=== PATIENT | male | born 1970 | race Caucasian/White ===

== ENCOUNTER → 2021-07-10 12:53 | Outpatient (CLI) | payer BC, SELFPAY ==
--- NOTE | ~2021-07-10 | CT_ITS ---
EXAMINATION: CT abdomen pelvis wo/w con DATE: 07/10/2021 13:58 INDICATION: Microscopic hematuria. TECHNIQUE: Computed tomography (CT) of the abdomen and pelvis was performed without and with intraven ous contrast using a total of 130 mL Omnipaque-350 intravenous contrast with a double-bolus technique for simultaneous opacification of the renal parenchyma and renal collecting system. Automated exposu re control and iterative reconstruction technique were employed. The dose-length product was 2130.09 mGy-cm. COMPARISON: CT abdomen and pelvis 10/23/2011 FINDINGS: The visualized portions of the lung bases demonstrate mild atelectasis. There are two 4 mm nodules in left lower lobe, likely benign. The heart size is normal. No pericardial effusion. There is diffuse hepatic steatosis. The gallbladder, spleen, pancreas, and adrenal glands are normal. There is a 1 mm stone in right kidney. Left kidney is normal. The ureters are not well opacified distally, but are no rmal. The bladder is normal. The prostate is mildly enlarged. There are bilateral inguinal hernias co ntaining fat. There are no dilated loops of bowel. There are no pathologically enlarged lymph nodes. There is no free intraperitoneal fluid. There is moderate lumbar spondylosis and mild thoracic spondy losis. IMPRESSION: 1. 1 mm nonobstructing right kidney stone. 2. Diffuse hepatic steatosis. 3. Bilateral inguinal hernias containing fat. Reviewed, dictated and finalized at location A. [employer]PER[employer]
[2021-07-10 13:25] LABS: Estimated Glomerular Filt Rate > 60
== END ==
PROVIDERS: Visit Provider Urology
DX: R31.29 Other microscopic hematuria (principal)
CPT/HCPCS: 74178; Q9967

== ENCOUNTER 2021-07-24 10:34 | Emergency (ER) | payer BC, SELFPAY ==
[2021-07-24 10:41] VITALS: BP 161/84; PULSE 75; RESP 12; TEMP 36.7; O2SAT 99
--- NOTE | 2021-07-24 10:45 | ED.URI ---
HPI - URI/Sore Throat General Chief Complaint: Upper Respiratory Infection Stated Complaint: RUNNY NOSE/CONGESTION/COUGH/FATIGUE Time Seen by Provider: 07/24/21 10:46 Source: patient and RN notes reviewed History of Present Illness HPI Narrative: Patient is a 51-year-old male who presents the urgent care with complaints of cough, runny nose, congestion and fatigue. Patient states it started on Friday and he recently was traveling from [place]. Patient denies of any fever. States that he does have a beginning stages of COPD and does have an inhaler that he has been using for symptom relief. Patient has also been using Mucinex. Denies of any other illness in the home. Denies of any known exposures. Patient is vaccinated for Covid. No other acute complaints. No acute distress noted. Patient aware of the plan of care. Some parts of this dictation were generated by voice recognition software and may contain typographical and/or grammatical inaccuracies. Related Data Home Medications Medication Instructions Recorded Confirmed albuterol sulfate INHALATION 07/24/21 budesonide-formoterol [Symbicort] INHALATION 07/24/21 hydrochlorothiazide 07/24/21 metoprolol tartrate 07/24/21 omeprazole 07/24/21 sertraline mg 07/24/21 valacyclovir 07/24/21 Allergies Allergy/AdvReac Type Severity Reaction Status Date / Time acetaminophen Allergy Verified 10/23/11 08:06 HYDROCODONE BIT Allergy Uncoded 10/23/11 08:06 Review of Systems Review of Systems: CONSTITUTIONAL: Denies fever, chills, or sweats. Reports of fatigue EYES: Denies visual changes, redness, or discharge. ENT: Reports of rhinorrhea, sinus congestion, postnasal drainage CARDIOVASCULAR: Denies chest pain, palpitations, or edema. RESPIRATORY: Reports a nonproductive cough with intermittent dyspnea GASTROINTESTINAL: Denies abdominal pain, nausea, vomiting, or diarrhea. GENITOURINARY: Denies dysuria or hematuria. SKIN: Denies rash or itching. MUSCULOSKELETAL: Denies back pain, joint pain, or myalgia. NEUROLOGIC: Denies headache, numbness, or weakness. All other systems reviewed are negative, except as documented in HPI. PMFSH Comments At the time of my signature, I reviewed and agree with the nursing past medical, surgical, social, and family history. There is no relevant family history pertinent to the patient complaint. Exam Narrative: GENERAL: This is a well-nourished, well-developed patient, in no apparent distress. HEAD: normocephalic, atraumatic. EYES: PERRL. Sclera clear/white. Vision is grossly intact. EARS: External ears normal, auditory canals clear and without drainage, TMs normal without perforation. Hearing grossly intact. NOSE: External nose normal with no obvious nasal discharge. Bilateral erythemic nares with clear to yellow rhinorrhea THROAT: Mucous membranes moist. Moderate erythema noted posterior oropharynx with moderate postnasal drainage NECK: Neck supple CARDIOVASCULAR: Regular rate and rhythm without murmurs, gallops, or rubs. RESPIRATORY: Slight crackles throughout. Breath sounds equal bilaterally. SKIN: warm, intact with no suspicious lesions or rash, good texture and turgor. NEURO: awake, alert, and oriented to person, place and time. There were no obvious focal neurologic abnormalities. EXTREMITIES: No clubbing, cyanosis, or edema. Course Vital Signs Vital signs: Vital Signs Temperature 98.0 F 07/24/21 10:41 Pulse Rate 75 07/24/21 10:41 Respiratory Rate 12 07/24/21 10:41 Blood Pressure 161/84 H 07/24/21 10:41 Pulse Oximetry 99 07/24/21 10:41 Temperature 98.0 F 07/24/21 10:41 Pulse Rate 75 07/24/21 10:41 Respiratory Rate 12 07/24/21 10:41 Blood Pressure 161/84 H 07/24/21 10:41 Pulse Oximetry 99 07/24/21 10:41 Reviewed-patient is informed that they may have pre-hypertension or hypertension based on a blood pressure reading in the department. I recommend the patient call the primary care provid
== END 2021-07-24 11:20 | disposition home or self-care (01) ==
PROVIDERS: Emergency Provider Nurse Practitioner Family
DX: J40 Bronchitis, not specified as acute or chronic (principal); Z20.822 Contact with and (suspected) exposure to COVID-19; I10 Essential (primary) hypertension
CPT/HCPCS: 87426; 87804; 99203; C9803; G0463

== ENCOUNTER 2022-08-26 16:56 | Emergency (ER) | payer BC, SELFPAY | END 2022-08-26 17:07 | disposition left against medical advice (07) | LOC: ANHED 18:04 | DX: Z53.21 Procedure and treatment not carried out due to patient leaving prior to being seen by health care provider (principal) | CPT/HCPCS: 99199 ==

== ENCOUNTER 2022-11-19 06:07 | Emergency (ER) | payer BC, SELFPAY ==
--- NOTE | ~2022-11-19 | XR_ITS ---
Clinical Indication: Chest pain PA and lateral views of the chest: Comparison: None Findings: The lungs are clear, without evidence of focal consolidation or pleural effusion. Cardiome diastinal silhouette is within normal limits. Bones and soft tissues are unremarkable. Impression: Normal chest. Reviewed, dictated and finalized at location . Impression: Normal chest.
--- NOTE | ~2022-11-19 | CT_ITS ---
Clinical Indication: Chest pain CT Scan of the Chest with Contrast: Technique: Contiguous sections were acquired throughout the chest after intravenous administration of 100 cc of Omnipaque 350. Dose reduction technique was used on this scan by utilizing automated expos ure control and iterative reconstruction technique. The dose-length product (DLP) was 844.68 mGy-cm. Findings: There is no evidence of any significant mediastinal, hilar or axillary lymphadenopathy. There is no f illing defect in the pulmonary arterial tree to suggest pulmonary embolus. There is no evidence of ao rtic dissection or aneurysm. There is no evidence of pleural or pericardial effusion. 3 mm nodule noted in the right middle lobe (axial image 74). 3 mm left upper lobe nodule noted (axial image 47). There is groundglass opacity in the left lower lobe adjacent to an apparent pseudarthrosi s bruising the left sixth and seventh ribs (axial images 57-64). Images through the upper abdomen reveal diffuse fatty infiltration of liver. Impression: No evidence of pulmonary embolus, aortic dissection, or aortic aneurysm. Subcentimeter pulmonary nodules, as noted above. According to Fleischner Society criteria, for a low- risk patient, no further follow-up required. For a high-risk patient, consider 12 month follow-up CT. Groundglass opacity in the left lower lobe adjacent to an apparent pseudoarthrosis between the left s ixth and seventh ribs. This probably represents local atelectatic change. Consider follow-up exam in 6 months to one year to reassess as indicated. Diffuse fatty infiltration of liver. Reviewed, dictated and finalized at [facility]. Impression: No evidence of pulmonary embolus, aortic dissection, or aortic aneurysm. Subcentimeter pulmonary nodules, as noted above. According to Fleischner Societ y criteria, for a low-risk patient, no further follow-up required. For a high-r isk patient, consider 12 month follow-up CT. Groundglass opacity in the left lower lobe adjacent to an apparent pseudoarthro sis between the left sixth and seventh ribs. This probably represents local ate lectatic change. Consider follow-up exam in 6 months to one year to reassess as indicated. Diffuse fatty infiltration of liver.
[2022-11-19 06:13] VITALS: BP 161/99; PULSE 82; RESP 19; O2SAT 96
--- NOTE | 2022-11-19 06:20 | ECG_ITS ---
Measurements Intervals [place] Rate: 80 P: 43 DC: 144 QRS: 5 QRSD: 90 T: 67 QT: 359 QTc: 414 Interpretive Statements SINUS RHYTHM BASELINE ARTIFACT NORMAL ECG NO PREVIOUS ECG AVAILABLE FOR COMPARISON Electronically Signed On 11-19-2022 16:15:54 CDT by Yariel Breen M.D.
[2022-11-19 06:26] VITALS: BP 161/99; PULSE 76; PULSE 77; RESP 16; TEMP 36.7; O2SAT 97
--- NOTE | 2022-11-19 06:51 | ED.CHESTPAIN ---
HPI - Chest Pain General Chief Complaint: Chest Pain <Salud Escoto MD - Last Filed: 11/29/22 07:10> Stated Complaint: chest pain <Salud Escoto MD - Last Filed: 11/29/22 07:10> Time Seen by Provider: 11/19/22 06:31 <Salud Escoto MD - Last Filed: 11/29/22 07:10> History of Present Illness HPI narrative: Patient presenting with chest pain, worse when he takes deep breaths, yesterday had been having bad nausea, vomiting, diarrhea, started taking Zofran and now is feeling better. Today feeling some chest pressure to his left chest. <Salud Escoto MD - Last Filed: 11/29/22 07:10> Related Data Home Medications: Home Medications Medication Instructions Recorded Confirmed albuterol sulfate 90 mcg/actuation inhalation 07/24/21 aerosol inhaler budesonide-formoterol HFA 160 inhalation 07/24/21 mcg-4.5 mcg/actuation aerosol inhaler (Symbicort) hydrochlorothiazide 12.5 mg capsule 07/24/21 metoprolol tartrate 50 mg tablet 07/24/21 omeprazole 40 mg capsule,delayed 07/24/21 release sertraline 100 mg tablet mg 07/24/21 valacyclovir 1 gram tablet 07/24/21 <Salud Escoto MD - Last Filed: 11/29/22 07:10> Allergies/Adverse Reactions: Allergies Allergy/AdvReac Type Severity Reaction Status Date / Time hydrocodone Allergy Unknown Hives Verified 11/19/22 08:15 <Salud Escoto MD - Last Filed: 11/29/22 07:10> Review of Systems Review of Systems: CONST: No fever. HEENT: No sore throat C/V: chest pain RESP: Difficulty with deep GI: Reports nausea, vomiting[, diarrhea] yesterday now resolved : No dysuria. M/S: No joint pain. SKIN: No rash. NEURO: [No headache or focal numbness or weakness] PSYCH: [No depression] <Salud Escoto MD - Last Filed: 11/29/22 07:10> [facility] Past Medical History Medical History: Medical History (Updated 11/20/22 @ 00:00 by Background Daramy) Hypertension <Salud Escoto MD - Last Filed: 11/29/22 07:10> Exam Narrative: EXAMINATION OF ORGAN SYSTEMS/BODY AREAS: Constitutional: Vital signs per nursing GENERAL: Appears somewhat anxious HEAD: Normal with no signs of head trauma. EYES: EOMI, conjunctiva normal ENT: Hearing grossly intact LUNGS: Nonlabored breathing, CTAB, but complains of pain with deep breaths HEART: [Regular rate and rhythm] ABD: [Soft], [nontender to palpation] EXT: Normal range of motion SKIN: [No rashes or lesions.] NEURO: [Alert and oriented x 3. No gross focal sensory or strength deficits.] PSYCH: slightly anxious affect <Salud Escoto MD - Last Filed: 11/29/22 07:10> Course Course Emergency Course: Care turned myself at shift change. Patient seen evaluate myself. Notes left-sided chest pain that began this morning. The pain is worse with deep inspiration and movement of the torso. If he does not move and states that without breathing he has no pain. States he did have episodes of nausea and vomiting yesterday Patient was given Toradol and GI cocktail in ED with improvement of pain Discussed with patient results of workup and diagnosis. Discussed need for follow-up with primary care, proper use of medication, and reasons to return to the emergency department. Patient understands and agrees to current treatment plan <Abraham Singh DO - Last Filed: 11/19/22 11:41> Vital Signs Vital signs: Vital Signs Pulse Rate 82 11/19/22 06:13 Respiratory Rate 19 11/19/22 06:13 Blood Pressure 161/99 H 11/19/22 06:13 Pulse Oximetry 96 11/19/22 06:13 Temperature 98.1 F 11/19/22 06:26 Pulse Rate 63 11/19/22 11:46 Respiratory Rate 16 11/19/22 11:46 Blood Pressure 151/92 H 11/19/22 11:46 Pulse Oximetry 96 11/19/22 11:46 Oxygen Delivery Room Air 11/19/22 06:26 <Salud Escoto MD - Last Filed: 11/29/22 07:10> Vital Signs Pulse Rate 82 11/19/22 06:13 Respiratory Rate 19 11/19/22 06:13 Blood Pressure 161/99 H 11/19/22 06:13 Pulse Oximetry 96 11/19/22
[2022-11-19 07:06] LABS: Basophils Percent Auto 0.1 % (0.2-1.2); Eosinophils Absolute Auto 0.1 K/mm3 (0-0.3); Eosinophils Percent Auto 0.7 % (0-4.4); Hematocrit 44.1 % (42.0-52.0); Hemoglobin 15.7 g/dL (14.0-18.0); Immature Granulocyte Absolute 0.03 K/mm3 (0.00-0.031); Immature Granulocyte Percent A 0.4 % (0-0.5); Lymphocytes Absolute Auto 0.77 K/mm3 (0.9-3.2); Lymphocytes Percent Auto 9.4 % (18.3-44.2); Mean Corpuscular HGB Conc 35.6 g/dl (32-36); Mean Corpuscular Hemoglobin 31.2 pg (26-34); Mean Corpuscular Volume 87.7 fl (80-100); Monocytes Absolute Auto 0.4 K/mm3 (0.1-0.6); Monocytes Percent Auto 4.7 % (2.6-8.5); Neutrophils Percent Auto 84.7 % (45.5-73.1); Platelet Count Result 223 k/mm3 (150-375); Red Blood Count 5.03 M/mm3 (4.6-6.20); Red Cell Distribution Width 13.7 % (11.5-14.5); White Blood Count 8.2 K/mm3 (4.5-10.0)
[2022-11-19 07:18] LABS: Alanine Aminotransferase 46 U/L (6-50); Albumin Level 4.8 g/dL (3.5-5.1); Alkaline Phosphatase 84 U/L (38-126); Anion Gap 7 mmol/L (8-16); Aspartate Amino Transferase 49 U/L (17-59); Bilirubin,Total 0.8 mg/dL (0.2-1.3); Blood Urea Nitrogen 16 mg/dL (9-20); Calcium 8.9 mg/dL (8.4-10.2); Carbon Dioxide 28 mmol/L (22-30); Chloride 102 mmol/L (98-107); Estimated Glomerular Filt Rate > 60; Glucose 146 mg/dL (65-110); Lipase 51 U/L (23-300); Potassium 3.5 mmol/L (3.4-5.0); Sodium 137 mmol/L (137-145)
[2022-11-19 07:29] LABS: NT Pro B Type Natriuretic Pept < 20 pg/mL (19.9-100); Troponin I < 0.012 ng/mL (0.000-0.034)
[2022-11-19 07:43] LABS: Influenza A QL RT-PCR Negative (Negative); Influenza B QL RT-PCR Negative (Negative); RSV RNA, RT-PCR Negative (Negative); SARS-CoV-2 RNA PCR Negative
[2022-11-19 08:07] LABS: D Dimer 1.04 ug/mL (<0.48)
[2022-11-19] MEDS: KETOROLAC 30 MG/ML VIAL (*BKC) IV PUSH (08:27)
[2022-11-19 09:41] LABS: Troponin I < 0.012 ng/mL (0.000-0.034)
[2022-11-19 11:10] VITALS: BP 148/90; PULSE 67; RESP 16; O2SAT 99
--- NOTE | 2022-11-19 11:12 | PC.NURSE ---
assumed care. pt resting per stretcher in no distress. states he feels a little better after GI cocktail. awaiting eval.
[2022-11-19 11:46] VITALS: BP 151/92; PULSE 63; RESP 16; O2SAT 96
== END 2022-11-19 11:48 | disposition home or self-care (01) ==
PROVIDERS: Emergency Medicine; Emergency Provider Emergency Medicine
DX: R07.89 Other chest pain (principal); Z20.822 Contact with and (suspected) exposure to COVID-19; I10 Essential (primary) hypertension; K76.0 Fatty (change of) liver, not elsewhere classified
CPT/HCPCS: 36415; 71046; 71275; 80053; 83690; 83880; 84484; 85025; 85380; 87637; 93005; 96374; 99284; A9270; J1885; Q9967

== ENCOUNTER 2022-12-05 05:53 | Emergency (ER) | payer BC, SELFPAY ==
[2022-12-05] VITALS (9 sets, daily range): BP systolic 153–172; BP diastolic 73–100; PULSE 57–80; RESP 15–18; TEMP 36.7; O2SAT 95–99
--- NOTE | ~2022-12-05 | XR_ITS ---
Lumbosacral Spine: AP, oblique, and lateral views Clinical History: Pain Findings: The normal lordotic curve is maintained. Minimal anterior wedging deformities of T12 and L1 are noted. 5 mm anterolisthesis of L4 over L5 noted. There is mild facet arthropathy at the lower ankit mbar spine. The intervertebral disc spaces are preserved. The sacroiliac joints are normally outline d. Impression: Minimal anterior wedging deformities of T12 and L1, probably similar to prior CT dated 07/10/2021. 5 mm anterolisthesis of L4 over L5. Mild facet arthropathy at the lower lumbar spine. Reviewed, dictated and finalized at location M. Impression: Minimal anterior wedging deformities of T12 and L1, probably similar to prior C T dated 07/10/2021. 5 mm anterolisthesis of L4 over L5. Mild facet arthropathy at the lower lumbar spine.
--- NOTE | 2022-12-05 07:19 | ED.BACK ---
HPI - Back Pain/Injury General Chief Complaint: Back Pain/Injury Stated Complaint: back pain Time Seen by Provider: 12/05/22 06:56 History of Present Illness HPI Narrative: 52-year-old male presented emergency department for evaluation of left lower back pain. Patient states he does have a history of degenerative disc disease. Patient reports a few days ago he was walking into the garage, had no falls or injuries but then stated he began having some left lower back pain. Patient states he does sit most of the day. Patient has been taking ibuprofen for pain control with minimal improvement. Patient denies any numbness or weakness in the lower extremities and denies any change in bowel or bladder habits. Patient reports he did take some Flexeril the night before and when he woke up yesterday morning the pain was temporarily improved. Patient states after sitting for period of time he began having worsening pain again. Patient denies any falls or injuries. Patient denies any history of kidney stones and denies any hematuria. Related Data Home Medications Medication Instructions Recorded Confirmed albuterol sulfate 90 mcg/actuation inhalation 07/24/21 aerosol inhaler budesonide-formoterol HFA 160 inhalation 07/24/21 mcg-4.5 mcg/actuation aerosol inhaler (Symbicort) hydrochlorothiazide 12.5 mg capsule 07/24/21 metoprolol tartrate 50 mg tablet 07/24/21 omeprazole 40 mg capsule,delayed 07/24/21 release sertraline 100 mg tablet mg 07/24/21 valacyclovir 1 gram tablet 07/24/21 Allergies Allergy/AdvReac Type Severity Reaction Status Date / Time No Known Allergies Allergy Verified 12/05/22 07:45 Review of Systems Review of Systems: All systems reviewed & are unremarkable except as noted in HPI and below PMFSH Past Medical History Medical History (Updated 12/05/22 @ 09:32 by Jerry Mercado MD) Hypertension Exam Narrative: APPEARANCE: Well appearing, no pain, no distress, well-nourished. HEAD: normocephalic, atraumatic. EYES: PERRLA/EOMI, conjunctivae clear. NECK: Supple. No adenopathy, no masses. RESPIRATORY: Airway patent, respirations nonlabored. Clear to auscultation bilaterally, no rales, rhonchi, wheezing. CARDIOVASCULAR: Regular rate and rhythm without murmurs rubs or gallops. ABDOMINAL: Soft, nontender, nondistended, normal bowel sounds MUSCULOSKELETAL: Left lower paraspinal tenderness to palpation NEURO: Alert. Cranial nerves II through XII intact. Grossly intact SKIN: Warm, dry. Normal Color Course Course Emergency Course: 52-year-old male presented the ED for evaluation of back pain. UA was ordered to evaluate for possible kidney stone. No hematuria or infection was identified. X-ray shows no acute fracture or dislocation. Patient reports he did take some muscle relaxant at home and that this did seem to help. Patient will be prescribed Flexeril for muscle spasm. Patient was encouraged of close follow-up with his primary care physician Vital Signs Vital signs: Vital Signs Temperature 98.0 F 12/05/22 05:56 Pulse Rate 80 12/05/22 05:56 Respiratory Rate 18 12/05/22 05:56 Blood Pressure 172/79 H 12/05/22 05:56 Pulse Oximetry 99 12/05/22 05:56 Oxygen Delivery Room Air 12/05/22 05:56 Temperature 98.0 F 12/05/22 05:56 Pulse Rate 57 L 12/05/22 07:04 Respiratory Rate 15 12/05/22 07:04 Blood Pressure 153/91 H 12/05/22 07:46 Pulse Oximetry 97 12/05/22 07:46 Oxygen Delivery Room Air 12/05/22 05:56 MDM - Back Pain/Injury Lab Data Attestation: I reviewed the patient's lab results. Labs: Lab Results 12/05/22 Range/Units 07:57 Urine Color Yellow (Yellow) Urine Appearance Clear (Clear) Urine pH 6.5 (5.0-9.0) Ur Specific [place] 1.028 (1.001-1.035) Urine Protein Negative (Negative) mg/dL Urine Glucose (UA) Negative (Negative) mg/dL Urine Ketones Negative (Negative) mg/dL Ur Blood (Man) Negat
--- NOTE | 2022-12-05 07:49 | PC.NURSE ---
Pt states he gets slight pain relief after urinating
[2022-12-05 08:05] LABS: Appearance Urine Clear (Clear); Bilirubin Urine Negative (Negative); Blood Urine Negative (Negative); Color Urine Yellow (Yellow); Glucose Urine UA Negative (Negative); Ketones Urine Negative (Negative); Leukocyte Esterase Ur Negative LEU/UL (Negative); Nitrate Urine Negative (Negative); Protein Urine Negative (Negative); Specific Grav Ur 1.028 (1.001-1.035); pH Urine 6.5 (5.0-9.0)
[2022-12-05 08:11] LABS: Add Urine Microscopic? NO
== END 2022-12-05 09:49 | disposition home or self-care (01) ==
PROVIDERS: Emergency Provider Emergency Medicine
DX: S39.012A Strain of muscle, fascia and tendon of lower back, initial encounter (principal); I10 Essential (primary) hypertension; X58.XXXA Exposure to other specified factors, initial encounter
CPT/HCPCS: 72110; 81003; 99283

== ENCOUNTER 2023-12-01 09:17 | Outpatient (CLI) | payer BC, SELFPAY ==
--- NOTE | ~2023-12-01 | CT_ITS ---
EXAMINATION: CT lung screening DATE: 12/01/2023 09:32 INDICATION: Personal history of nicotine dependence TECHNIQUE: Computed tomography (CT) of the chest was performed without intravenous contrast. The dose -length product was 222.81 mGy-cm. Automated exposure control and iterative reconstruction technique were employed. COMPARISON: CT dated 11/19/2022 FINDINGS: Heart size normal. No significant pleural or pericardial effusion. No thoracic lymphadenopa thy. No endobronchial lesions. There is a 3 mm left perifacial nodule, image 39. There are small righ t upper lobe nodules measuring 2-3 mm. There is a 3 mm left upper lobe nodule, image 42. There is a 3 mm left lower lobe nodule. No pneumothorax. No endobronchial lesions. IMPRESSION: 1. Lung-RADS category 2: Benign appearance or behavior. Continue annual screening with noncontrast lo w-dose chest CT in 12 months. Reviewed, dictated and finalized at location B. IMPRESSION: 1. Lung-RADS category 2: Benign appearance or behavior. Continue annual screeni ng with noncontrast low-dose chest CT in 12 months.
== END 2023-12-01 09:18 ==
PROVIDERS: PCP Nurse Practitioner Family; Visit Provider Nurse Practitioner Family
DX: Z12.2 Encounter for screening for malignant neoplasm of respiratory organs (principal); Z87.891 Personal history of nicotine dependence
CPT/HCPCS: 71271

== ENCOUNTER 2024-09-15 09:15 | Outpatient (CLI) | payer BC, SELFPAY ==
--- NOTE | 2024-09-15 09:17 | EST_ITS ---
Patient Info Name: Marin Mejia Age: 54 years : 1970 Gender: Male Ht: 66 in Wt: 220 lbs BSA: 2.20 m2 HR: 56 bpm BP: 171 / 85 mmHg Exam Date: 09/15/2024 9:44 AM Exam Location: [facility] Patient Status: Outpatient Admit Date: 09/15/2024 Staff Ordering Physician: Batool Holman NP Attending Provider: Batool Holman NP Exercise Technologist: Lucille Abarca [facility] Exercise Physician: Pavel Tovar DO Exam Type: CA stress test treadmill Study Info A treadmill exercise stress test was performed. Summary 1. 1. Inconclusive Nader exercise stress test for ischemic ST changes by ECG criteria due to achieving only 65% MPHR for age group. This is probably due to taking Metoprolol the night before. 2. 2. Good functional capacity, achieving 10 METs of workload. 3. 3. Appropriate HR response to exercise. 4. 4. Appropriate HR recovery at 1 minute post exercise. 5. 5. No imaging with stress testing. 6. 6. Patient informed of the above results. Protocol: Nader Stress ECG Details Stage: REST Duration (min): 2 min : 13 sec Speed (mph): 0.0 Grade (%): 0 HR (bpm): 55 SBP (mmHg): 171 DBP (mmHg): 85 METS: --- Stage: REST Duration (min): 5 min : 24 sec Speed (mph): 0.0 Grade (%): 0 HR (bpm): 63 SBP (mmHg): 171 DBP (mmHg): 85 METS: --- Stage: STAGE 1 Duration (min): 1 min : 0 sec Speed (mph): 1.7 Grade (%): 10 HR (bpm): 74 SBP (mmHg): 171 DBP (mmHg): 85 METS: --- Stage: STAGE 1 Duration (min): 2 min : 0 sec Speed (mph): 1.7 Grade (%): 10 HR (bpm): 81 SBP (mmHg): 171 DBP (mmHg): 85 METS: --- Stage: STAGE 1 Duration (min): 3 min : 0 sec Speed (mph): 1.7 Grade (%): 10 HR (bpm): 84 SBP (mmHg): 171 DBP (mmHg): 85 METS: --- Stage: STAGE 2 Duration (min): 1 min : 0 sec Speed (mph): 2.5 Grade (%): 12 HR (bpm): 88 SBP (mmHg): 117 DBP (mmHg): 87 METS: --- Stage: STAGE 2 Duration (min): 2 min : 0 sec Speed (mph): 2.5 Grade (%): 12 HR (bpm): 89 SBP (mmHg): 117 DBP (mmHg): 87 METS: --- Stage: STAGE 2 Duration (min): 3 min : 0 sec Speed (mph): 2.5 Grade (%): 12 HR (bpm): 91 SBP (mmHg): 177 DBP (mmHg): 91 METS: --- Stage: STAGE 3 Duration (min): 1 min : 0 sec Speed (mph): 3.4 Grade (%): 14 HR (bpm): 101 SBP (mmHg): 177 DBP (mmHg): 91 METS: --- Stage: STAGE 3 Duration (min): 2 min : 0 sec Speed (mph): 3.4 Grade (%): 14 HR (bpm): 101 SBP (mmHg): 177 DBP (mmHg): 91 METS: --- Stage: STAGE 3 Duration (min): 3 min : 0 sec Speed (mph): 3.4 Grade (%): 14 HR (bpm): 107 SBP (mmHg): 160 DBP (mmHg): 98 METS: --- Stage: RECOVERY Duration (min): 0 min : 59 sec Speed (mph): 0.0 Grade (%): 0 HR (bpm): 83 SBP (mmHg): 160 DBP (mmHg): 98 METS: --- Stage: RECOVERY Duration (min): 1 min : 59 sec Speed (mph): 0.0 Grade (%): 0 HR (bpm): 68 SBP (mmHg): 160 DBP (mmHg): 98 METS: --- Stage: RECOVERY Duration (min): 2 min : 59 sec Speed (mph): 0.0 Grade (%): 0 HR (bpm): 67 SBP (mmHg): 160 DBP (mmHg): 98 METS: --- Stage: RECOVERY Duration (min): 3 min : 8 sec Speed (mph): 0.0 Grade (%): 0 HR (bpm): 69 SBP (mmHg): 203 DBP (mmHg): 94 METS: --- Rest HR: 63 bpm Peak HR: 108 bpm Rest Sys BP: 171 mmHg Peak Sys BP: 203 mmHg Max Pred HR: 165 bpm % Max Pred HR: 65 % Target HR: 140 bpm Max RPP: 21,924 bpm*mmHg [place] Score: 4 Termination Reason: Maximal effort/unable to continue Cardiac Symptoms: Shortness of breath Max ST Seg Deviation: 0.90 mm Total Time: 9 min : 0 sec Rest [place] BP: 85 mmHg Peak [place] BP: 94 mmHg Angina Score: None Total METS: 10.3 Resting ECG Sinus rhythm. Stress ECG No ST changes. Arrhythmias None. Report Signatures
--- OUTSIDE RECORDS SUMMARY | 2024-09-15 09:44 | XMS_ITS | Clinical Summary ---
Author Organization [facility] Address [address] [place] [address] Care Team Providers Care Netsuite Consultant Name Role Phone oH Mercado MD Primary Care Provider [phone] Allergies No known active allergies Medications sertraline 100 MG tablet Take 150 mg by mouth daily. 09/18/2021 Active lisinopril 10 MG tablet Take 10 mg by mouth daily. 09/18/2021 Active metoprolol tartrate 50 MG tablet Take 50 mg by mouth 2 (two) times daily. 09/18/2021 Active omeprazole 40 MG capsule Take 40 mg by mouth daily. 09/18/2021 Active calcium citrate-vitamin D 315 MG-250 UNIT 315-250 MG-UNIT Tab tablet Take by mouth 2 (two) times daily as needed. Active Saw [place] 450 MG Cap Active B complex-C Cap capsule Take 1 capsule by mouth daily. Active omeprazole (PRILOSEC) 20 MG capsule TAKE 1 CAPSULE BY MOUTH ONCE DAILY DIRECTED FOR 30 DAYS 05/27/2022 Active ibuprofen (MOTRIN) 200 MG tablet Take 200 mg by mouth every 6 (six) hours as needed for Pain. Active Active Problems Problem Noted Date Diagnosed Date Precordial pain 10/01/2021 Essential hypertension Family History Medical History Relation Comments Alcohol Abuse Father COPD Father Heart Attack Maternal Grandfather Cancer Mother Early Mother Heart Attack Paternal Grandfather Relation Status Comments Brother Alive Father Alive Maternal Grandfather (Age 57) Mother (Age 56) Paternal Grandfather (Age 72) Sister Alive Social History Tobacco Use Types Packs/Day Years Used Date Smoking Tobacco: Former Cigarettes Q uit: 08/11/2018 Smokeless Tobacco: Never Tobacco Cessation:Counseling Given: No Comments:vapes RD to discuss Alcohol Use Standard Drinks/Week Comments Not Currently 0 (1 standard drink = 0.6 oz pur e alcohol) PHQ-2 Answer Date Recorded PHQ-2 Score - If the patient scores above 3, please move on to questions 3-9 0 05/31/2022 Sex and Gender Information Value Date Recorded Sex Assigned at Not on file Legal Sex Male 7:16 PM CDT Gender Identity Male 09/28/2021 3:36 PM [employer] Sexual Orientation Not on file 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 Not on file Not on file Not on file Last Filed Vital Signs Vital Sign Reading Time Taken Comments Blood Pressure 135/80 07/12/2022 7:26 AM [employer] Pulse 64 07/12/2022 7:26 AM [employer] Temperature - - Respiratory Rate - - Oxygen Saturation - - Inhaled Oxygen Concentration - - Weight 96.6 kg (213 lb) 07/12/2022 7:26 AM [employer] Height 162.6 cm (5' 4 ) 07/12/2022 7:26 AM [employer] Body Mass Index 36.56 07/12/2022 7:26 AM [employer] Plan of Treatment Health Maintenance Due Date Last Done Comments Colorectal Cancer Screening Colonoscopy (10 Years) 1969 Annual Physical 1972 Hepatitis C 1987 DTaP, Tdap and Td Vaccines ( 1 - Tdap) 1988 Hepatitis B Vaccines (1 of 3 - 19+ 3-dose series) 1988 Zoster Vaccines (1 of 2) 2019 COVID-19 Vaccine (2023-2 5 season) 2024 Influenza Adult (#1) 2024 Meningococcal B Vaccine Aged Out No l onger eligible based on patient's age to complete this topic Meningococcal Vaccine Aged Out No florinda suzanne eligible based on patient's age to complete this topic Pneumococcal Vaccine: Pediat rics (0 to 5 Years) and At-Risk Patients (6 to 64 Years) Aged Out No longer eligible b ased on patient's age to complete this topic RSV Immunizations Under 20 Months Aged Out No longer eligible based on patient's age to complete this topic Insurance [facility] Care Teams Netsuite Consultant Relationship Specialty Start Date End Date Ho Mercado MD [address] [place] [address] [place] [id number] PCP - General FAMILY PRACTICE 09/19/21
== END 2024-09-15 09:16 | disposition home or self-care (01) ==
PROVIDERS: PCP Nurse Practitioner Family; Visit Provider Nurse Practitioner Family
DX: E78.5 Hyperlipidemia, unspecified (principal); I10 Essential (primary) hypertension; R42 Dizziness and giddiness
CPT/HCPCS: 93017

== ENCOUNTER 2025-02-22 16:29 | Outpatient (CLI) | payer BC, SELFPAY ==
--- NOTE | ~2025-02-22 | CT_ITS ---
CT Scan of the Chest without Contrast: Clinical Indication: Lung cancer screening, nicotine dependence Technique: Contiguous sections were acquired throughout the chest without intravenous contrast. Dose reduction technique was used on this scan by utilizing automated exposure control and iterative recon struction technique. The dose-length product (DLP) was 191.08 mGy-cm. COMPARISON: 12/01/2023 Findings: There is no evidence of any significant mediastinal, hilar or axillary lymphadenopathy. The mediastin al soft tissues appear normal. There is no evidence of pleural or pericardial effusion. Several subcentimeter pulmonary nodules in the right upper lobe and the left lung base are unchanged from prior exam. Images through the upper abdomen reveal no abnormalities. Impression: Lung RADS 2: Benign appearance. 12 month follow-up screening CT advised. Reviewed, dictated and finalized at [facility]. Impression: Lung RADS 2: Benign appearance. 12 month follow-up screening CT advised.
== END 2025-02-22 16:30 | disposition home or self-care (01) ==
LOC: MICIMG 16:30
PROVIDERS: PCP Nurse Practitioner Family; Visit Provider Nurse Practitioner Family
DX: Z12.2 Encounter for screening for malignant neoplasm of respiratory organs (principal); Z87.891 Personal history of nicotine dependence
CPT/HCPCS: 71271